=== PATIENT | male | born 1990 | race Caucasian/White ===

== ENCOUNTER 2017-12-01 22:13 | Emergency (ER) | payer OTHER, BC ==
[2017-12-01] MEDS ORDERED: Bacitracin Oint 1 GM U/D Packet TOP ONE (22:17)
[2017-12-01] MEDS ORDERED: Lidocaine 1% 20 ML MDV INJECT ONE (22:17)
[2017-12-01] MEDS ORDERED: Diphtheria,Pertussis(Acell),Tetanus Vaccine 0.5 ML Syringe IM ONE (23:19)
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
== END 2017-12-01 23:36 | disposition home or self-care (01) ==
LOC: MW.ED 22:13
DX: S01.81XA Laceration without foreign body of other part of head, initial encounter (principal); S09.90XA Unspecified injury of head, initial encounter; F17.210 Nicotine dependence, cigarettes, uncomplicated; Z23 Encounter for immunization; V89.2XXA Person injured in unspecified motor-vehicle accident, traffic, initial encounter
CPT/HCPCS: 70450; 70450-26; 71045; 71045-26; 90471; 90715; 99285-25